=== PATIENT | female | born 1985 | race African-American/Black ===

== ENCOUNTER 2022-11-26 17:02 | Observation (INO) ==
[2022-11-26 17:26] LABS: INR 1.11 (0.88-1.18)
[2022-11-26 17:38] LABS: Anisocytosis 1+; Microcytosis 3+
[2022-11-26 17:39] LABS: Hypochromasia 1+; Tear Drop Cells 1+
[2022-11-26 17:41] LABS: Anion Gap 10 mmol/L (2-16); CO2 Carbon Dioxide 21 mmol/L (22-32); Chloride 103 mmol/L (101-111); Glucose 122 mg/dL (70-100); Potassium 3.6 mmol/L (3.5-5.0); Sodium 134 mmol/L (135-145)
[2022-11-26 17:42] LABS: ABS Basophils 0.1 10^3/uL (0.0-0.1); ABS Eosinophils 0.1 10^3/uL (0.0-0.5); ABS Lymphocytes 1.6 10^3/uL (1.0-4.8); ABS Monocytes 0.7 10^3/uL (0.0-0.9); ABS Neutrophils 3.2 10^3/uL (1.5-7.6); ABS Nucleated RBC 0.01 10^3/ul; ALT 17 U/L (7-52); AST 22 U/L (13-39); Albumin 4.2 g/dL (3.2-5.2); Albumin/Globulin Ratio 1.2 (1-3); Alkaline Phosphatase 112 U/L (35-149); Blood Urea Nitrogen 17 mg/dL (6-24); Calcium 8.9 mg/dL (8.6-10.3); Creatinine, Serum 0.96 mg/dL (0.51-0.95); Eosinophil % 1.9 %; Globulin 3.6 g/dL (2-4); Hematocrit 32.8 % (35-45); Hemoglobin 10.4 g/dL (11.5-14.3); High Sens Troponin Baseline 6 pg/mL (<15); Lymphocyte % 28.1 %; Mean Corpuscular Hemoglobin 21.3 pg (27-33); Mean Corpuscular Hgb Conc 31.7 g/dL (31-36); Mean Corpuscular Volume 67.2 fL (80-97); Mean Platelet Volume 7.7 fL (7.5-11.2); Nucleated Red Blood Cells % 0.2 /100 WBC (0.0-0.4); Platelet Count 477 10^3/uL (150-450); Red Blood Count 4.87 10^6/uL (3.63-4.92); Red Cell Distribution Width 19.5 % (12-17); Total Protein 7.8 g/dL (6.4-8.9); White Blood Count 5.6 10^3/uL (3.8-11.8); eGFR CKD-EPI 79.1 (>60)
[2022-11-26 17:50] LABS: C Reactive Protein 4.21 mg/L (<8.01)
[2022-11-26 17:57] LABS: HCG Pregnancy < 0.60 mIU/mL
[2022-11-26 18:47] LABS: High Sensitivity Troponin 1 Hr 6 pg/mL (<15)
[2022-11-26] MEDS ORDERED: Iohexol 350 (CONTRAST) 500 ML MDV IV ONE (20:39)
[2022-11-27 07:20] VITALS: BP 168/84
[2022-11-27] MEDS ORDERED: Regadenoson 0.4 MG/5 ML SYRINGE ONE (07:53)
== END 2022-11-27 13:27 | disposition left against medical advice (07) ==
LOC: EDHOLD 17:02 → ED 17:02 → SUATTDRO 23:44 → EDHOLD 11-27 00:09
PROVIDERS: ADMIT Hospitalist; ATTEND Internal Medicine